=== PATIENT | male | born 1945 | race Two or more races ===

== ENCOUNTER 2017-04-05 13:34 | Inpatient (IN) | payer MEDICARE, OTHER ==
[~2017-04-05] VITALS: Ht 167.6 cm; Wt 86.2 kg
--- NOTE | 2017-04-05 14:00 | NUR ---
PT BIBA FROM [facility] FOR UNCONTROLLED BLOOD SUGAR. PT NOTED LETHARGIC. OPENS EYES TO NAME. NOTED GANGRENE ON RIGHT FOOT. SEEN BY MD FOR EVAL. SAFETY AND COMFORT MEASURES PROVIDED. WILL MONITOR.
[2017-04-05] MEDS ORDERED: ACETAMINOPHEN 650 MG/SUPP.RECT RC ONE ×2 (14:17→14:30)
[2017-04-05 14:26] LABS: HEMATOCRIT 28 % (39-51)
[2017-04-05] MEDS ORDERED: IV NS 0.9% 1,000 ML BAG IV ONE (14:30)
[2017-04-05] MEDS ORDERED: VANCOMYCIN 1 GM in IV D5W 250 ML IV ONE (14:30)
[2017-04-05] MEDS ORDERED: PIPERACILLIN /TAZOBACTAM 3.375 G in IV D5W 50 ML IV ONE (14:30)
[2017-04-05 14:31] LABS: EOSINOPHILS # (AUTO) 0.3 /CMM (0.0-0.7); EOSINOPHILS % (AUTO) 1.6 % (0.0-6.0); LYMPHOCYTES # (AUTO) 1.1 /CMM (0.8-4.8); LYMPHOCYTES % (AUTO) 6.9 % (20.0-44.0); MEAN CORPUSCULAR HEMOGLOBIN 29 PG (26.0-33.0); MEAN CORPUSCULAR HGB CONC 32 g/dl (31.0-36.0); MEAN CORPUSCULAR VOLUME 92 fL (80-96); MONOCYTES # (AUTO) 1.1 /CMM (0.1-1.30); MONOCYTES % (AUTO) 6.5 % (2.0-12.0); NEUTROPHILS # (AUTO) 13.7 /CMM (1.8-8.9); PLATELET COUNT (AUTO) 730 /CMM (150-450); RDW COEFFICIENT OF VARIATION 18.8 (11.5-15.0); RED BLOOD CELL COUNT(AUTO) 3.09 MIL/uL (4.5-6.0); WHITE BLOOD COUNT (AUTO) 16.2 K/uL (4.3-11.0)
[2017-04-05 14:46] LABS: INR 1.16 (0.87-1.13); PROTHROMBIN TIME 12.2 SECS (9.5-12.7)
[2017-04-05 14:49] LABS: ALANINE AMINOTRANSFERASE 48 U/L (12-78); ALBUMIN 2.6 g/dL (3.4-5.0); ALKALINE PHOSPHATASE 466 U/L (46-116); ASPARTATE AMINOTRANSFERASE 63 U/L (15-37); BILIRUBIN,DIRECT 0.3 mg/dL (0.0-0.2); BILIRUBIN,TOTAL 0.7 mg/dL (0.2-1.0); CALCIUM, SERUM 8.9 mg/dL (8.5-10.1); CARBON DIOXIDE 29 mmol/L (21-32); CHLORIDE 93 mmol/L (98-107); POTASSIUM 4.2 mmol/L (3.5-5.1); SODIUM SERUM 133 mmol/L (136-145); TOTAL PROTEIN, SERUM 7.6 g/dL (6.4-8.2)
[2017-04-05 14:50] LABS: TROPONIN I 0.021 ng/mL (0.00-0.056)
[2017-04-05 14:50] LABS: ABG BASE EXCESS 0.4 mmol/L; ABG OXYGEN SATURATION 96.5 % (92.0-98.5); ABG PH 7.414 (7.350-7.450); ABG PO2 101.5 mmHg (75.0-100.0); AaDO2 79.9 mmHg; COHb 1.3 % (0.5-1.5); MetHb 0.5 % (0.0-1.5); O2Hb 94.8 % (94.0-97.0); SITE, ABG Right Radial; VENT MODE, BG NASAL CANNULA
[2017-04-05 14:52] LABS: GLUCOSE 653 mg/dL (74-106); UREA NITROGEN, BLOOD 97 mg/dL (7-18)
--- NOTE | 2017-04-05 15:10 | NUR ---
IV ACCESS STARTED. BLOOD DRAWN FOR LABS. PT MEDICATED ORDERED.
--- NOTE | 2017-04-05 15:55 | NUR ---
PAGED WALTER HDEZ FOR PANEL ADMISSION
[2017-04-05] MEDS ORDERED: INSULIN REGULAR, HUMAN 100 UNIT/ML 10 ML VIAL SQ STA (15:57)
[2017-04-05] MEDS ORDERED: INSULIN REGULAR, HUMAN 100 UNIT/ML 10 ML VIAL ONE (16:12)
--- NOTE | 2017-04-05 16:23 | NUR ---
WALTER HDEZ DNP CALLED BACK, TRANSFERRED CALL TO DR URIBE
--- NOTE | 2017-04-05 16:30 | NUR ---
PAGED WALTER HDEZ AGAIN PER DR URIBE
[2017-04-05] MEDS ORDERED: CITA20TA19 PO (16:44)
[2017-04-05] MEDS ORDERED: CALC-343 PO (16:44)
[2017-04-05] MEDS ORDERED: METO2.5T2 PO (16:44)
[2017-04-05] MEDS ORDERED: LOSA25TA13 PO (16:44)
[2017-04-05] MEDS ORDERED: FURO-144 PO (16:44)
[2017-04-05] MEDS ORDERED: ASCO500T9 PO (16:44)
[2017-04-05] MEDS ORDERED: ATOR20TA PO (16:44)
[2017-04-05] MEDS ORDERED: DOCU-25 PO (16:44)
[2017-04-05] MEDS ORDERED: METO25TA6 PO (16:44)
[2017-04-05] MEDS ORDERED: CLON0.1T PO (16:44)
[2017-04-05] MEDS ORDERED: MULT-213 PO (16:44)
[2017-04-05] MEDS ORDERED: METR-105 PO (16:44)
[2017-04-05] MEDS ORDERED: INSU100V3 SQ (16:44)
[2017-04-05] MEDS ORDERED: TERA1CAP11 PO (16:44)
[2017-04-05] MEDS ORDERED: NITR0.4T6 SL (16:44)
[2017-04-05] MEDS ORDERED: SEVE800T8 PO (16:44)
[2017-04-05] MEDS ORDERED: ASPI81TA2 PO (16:44)
[2017-04-05] MEDS ORDERED: LEVO25TA9 PO (16:44)
[2017-04-05] MEDS ORDERED: EPOE1VIA6 SQ (16:44)
[2017-04-05] MEDS ORDERED: [UNRECOGNIZED DRUG - CODE] SQ (16:44)
[2017-04-05] MEDS ORDERED: LEVO500T15 PO (16:44)
[2017-04-05] MEDS ORDERED: SACC250C6 PO (16:44)
--- NOTE | 2017-04-05 17:06 | NUR ---
REPAGED WALTER HDEZ
--- NOTE | 2017-04-05 17:07 | NUR ---
REPEAT BLOOD GLUCOSE 559
[2017-04-05] MEDS ORDERED: INSULIN REGULAR, HUMAN 100 UNIT/ML 10 ML VIAL IV ONE (17:30)
--- NOTE | 2017-04-05 18:14 | NUR ---
REPORT GIVEN TO GRICELDA LAGUNAS FOR TELE ROOM [phone]
--- NOTE | 2017-04-05 18:20 | NUR ---
PT NOTED RESPONSIVE TO INSULINE- LAST [id number]
--- NOTE | 2017-04-05 18:30 | NUR ---
TELEPHONE INTERCEPTOR OPERATOR NOTES PATIENT RECEIVED FROM E.R. DEPARTMENT VIA PATRICIA, UNDER THE CARE OF DR. WALTER HDEZ, PATIENT IS ALERT AND ORIENTED X2, INDONESIAN SPEAKING ONLY, ON O2 AT 2LPM VIA NC WITH SPO2 100%, NO DISTRESS NOTED, VITAL SIGNS STABLE, PLACED PATIENT IN BED, ENSURE SAFETY AND COMFORT, NEEDS ATTENDED AND ANTICIPATED, CALL LIGHT WITHIN REACH, WILL CONTINUE TO MONITOR. Addendum: 04/05/17 at 1902 by GRICELDA CARPENTER RN ADDENDUM: WILL ENDORSE TO [employer]ON CAPTURE POWER PLANT MANAGER FOR ONESIMO.
[2017-04-05 18:56] VITALS: BP 149/79
[2017-04-05 18:58] VITALS: BP 149/79
--- NOTE | 2017-04-05 19:30 | NUR ---
RN ADMITTING NOTES RECEIVED REPORT FROM LUKE RN. Pt ARRIVED ONTO FLOOR A LITTLE AFTER 1830. FOUND Pt ASLEEP IN BED, ABLE TO BE AWAKENED, A BIT LETHARGIC. Pt IS A/OX2, KYRGYZ SPEAKING. NO S/S OF ACUTE DISTRESS OR SOB NOTED. IV ACCESS ON RFA #18G. SAFETY MEASURES IN PLACE. BED LOW, LOCKED, HOB ELEVATED, SIDE RAILS UP, CALL LIGHT AND BEDSIDE TABLE WITHIN REACH. WILL CONTINUE TO MONITOR Pt THROUGHOUT THE NIGHT FOR SAFETY.
[2017-04-05 20:00] VITALS: BP 159/81
[2017-04-05] MEDS ORDERED: Z GUARD REMEDY 2 OZ OINT TP PRN (20:00)
[2017-04-05] MEDS ORDERED: CLONIDINE HCL 0.1 MG TABLET PO PRN (20:00)
[2017-04-05] MEDS ORDERED: DEXTROSE 50%-WATER 50 ML DISP.SYRIN IV PRN (20:00)
[2017-04-05] MEDS ORDERED: ONDANSETRON HCL/PF 4 MG/2 ML VIAL IVP PRN (20:00)
[2017-04-05] MEDS ORDERED: HEPARIN SODIUM, PORCINE 5000 UNITS/1 ML VIAL SQ SCH (21:00)
[2017-04-05] MEDS: MEROPENEM 1 G in IV NS 0.9% 100 ML IV SCH (21:00)
[2017-04-05] MEDS: BLOOD SUGAR DIAGNOSTIC 1 EACH STRIP IN SCH (21:31)
[2017-04-05] MEDS: INSULIN REGULAR, HUMAN 100 UNIT/ML 3 ML VIAL SQ PRN (21:40)
[2017-04-05] MEDS ORDERED: MEROPENEM 1 G VIAL IV ONE (22:00)
--- NOTE | 2017-04-05 22:00 | NUR ---
RN NOTES ADMINISTERED 10UN OF LEVEMIR PER MD ORDER. BG 384.
--- NOTE | 2017-04-05 22:00 | NUR ---
RN NOTES BG 384. ADMINISTERED 20UN OF INSULIN PER SLIDING SCALE.
[2017-04-05] MEDS ORDERED: TERAZOSIN HCL 1 MG CAPSULE ONE (22:01)
[2017-04-05] MEDS ORDERED: ATORVASTATIN 10 MG TABLET ONE (22:02)
[2017-04-05] MEDS ORDERED: HEPARIN SODIUM, PORCINE 5000 UNITS/1 ML VIAL ONE (22:02)
[2017-04-05] MEDS ORDERED: LOSARTAN POTASSIUM 25 MG TABLET ONE (22:02)
[2017-04-05] MEDS ORDERED: INSULIN DETEMIR 100 UNIT/ML CARTRIDGE SQ ONE (22:12)
[2017-04-05] MEDS: HEPARIN SODIUM, PORCINE 5000 UNITS/1 ML VIAL SQ SCH (22:21)
[2017-04-05] MEDS: ATORVASTATIN 10 MG TABLET PO SCH (22:21)
[2017-04-05] MEDS: LOSARTAN POTASSIUM 25 MG TABLET PO SCH (22:22)
[2017-04-05] MEDS: TERAZOSIN HCL 1 MG CAPSULE PO SCH (22:22)
[2017-04-05] MEDS: INSULIN DETEMIR 100 UNIT/ML CARTRIDGE SQ SCH (22:24)
[2017-04-06] VITALS: BP 157/71
[2017-04-06] MEDS ORDERED: INSULIN REGULAR, HUMAN 100 UNIT/ML 3 ML VIAL SQ SCH
[2017-04-06] MEDS: BLOOD SUGAR DIAGNOSTIC 1 EACH STRIP IN SCH ×6 (01:44→22:29)
[2017-04-06] MEDS: INSULIN REGULAR, HUMAN 100 UNIT/ML 3 ML VIAL SQ PRN ×2 (01:51→22:36)
--- NOTE | 2017-04-06 01:55 | NUR ---
RN NOTES BG CHECK 203. ADMINISTERED 8UN OF INSULIN PER SLIDING SCALE.
[2017-04-06 04:00] VITALS: BP 147/72
[2017-04-06] MEDS ORDERED: MEROPENEM 1 G VIAL IV ONE (04:29)
[2017-04-06] MEDS: MEROPENEM 1 G in IV NS 0.9% 100 ML IV SCH (04:58)
--- NOTE | 2017-04-06 05:07 | NUR ---
RN NOTES BG 122. NO INSULIN COVERAGE NEEDED AT THIS TIME.
--- NOTE | 2017-04-06 06:45 | NUR ---
RN CLOSING NOTES NO SIGNIFICANT CHANGES IN Pt's CONDITION. NO S/S OF ACUTE DISTRESS OR SOB NOTED DURING THE NIGHT. ALL NEEDS MET AND ATTENDED TO. SAFETY MEASURES IN PLACE. TELE READING SR 78. WILL ENDORSE TO DAYSHIFT RN FOR Pt's ONESIMO.
[2017-04-06 07:00] LABS: EOSINOPHILS # (AUTO) 0.4 /CMM (0.0-0.7); EOSINOPHILS % (AUTO) 2.4 % (0.0-6.0); HEMATOCRIT 26 % (39-51); HEMOGLOBIN 8.3 g/dL (13.5-17.5); LYMPHOCYTES # (AUTO) 1.3 /CMM (0.8-4.8); MEAN CORPUSCULAR HEMOGLOBIN 29 PG (26.0-33.0); MEAN CORPUSCULAR HGB CONC 32 g/dl (31.0-36.0); MEAN CORPUSCULAR VOLUME 91 fL (80-96); MONOCYTES # (AUTO) 0.8 /CMM (0.1-1.30); MONOCYTES % (AUTO) 4.7 % (2.0-12.0); NEUTROPHILS # (AUTO) 13.9 /CMM (1.8-8.9); NEUTROPHILS % (AUTO) 84.9 % (43.0-81.0); PLATELET COUNT (AUTO) 552 /CMM (150-450); RDW COEFFICIENT OF VARIATION 19.8 (11.5-15.0); RED BLOOD CELL COUNT(AUTO) 2.85 MIL/uL (4.5-6.0); WHITE BLOOD COUNT (AUTO) 16.3 K/uL (4.3-11.0)
[2017-04-06 07:05] LABS: ALANINE AMINOTRANSFERASE 46 U/L (12-78); ALBUMIN 2.3 g/dL (3.4-5.0); ALKALINE PHOSPHATASE 364 U/L (46-116); ASPARTATE AMINOTRANSFERASE 41 U/L (15-37); BILIRUBIN,TOTAL 0.7 mg/dL (0.2-1.0); CALCIUM, SERUM 8.5 mg/dL (8.5-10.1); CARBON DIOXIDE 28 mmol/L (21-32); CHLORIDE 94 mmol/L (98-107); CREATININE 6.8 mg/dL (0.6-1.3); GLUCOSE 110 mg/dL (74-106); MAGNESIUM 2.3 mg/dL (1.8-2.4); POTASSIUM 3.9 mmol/L (3.5-5.1); SODIUM SERUM 133 mmol/L (136-145); TOTAL PROTEIN, SERUM 7.1 g/dL (6.4-8.2)
[2017-04-06 07:11] LABS: UREA NITROGEN, BLOOD 95 mg/dL (7-18)
[2017-04-06 07:15] VITALS: BP 136/68
[2017-04-06 07:18] LABS: IRON, SERUM 35 ug/dl (50-175); TOTAL IRON BINDING CAPACITY 127 ug/dl (250-450)
[2017-04-06 07:25] LABS: CHOLESTEROL 74 mg/dL (<200); HDL CHOLESTEROL 31 mg/dL (40-60); LDL 36 mg/dL (0-99); THYROID STIMULATING HORMONE 5.652 uIU/mL (0.358-3.74); TRIGLYCERIDES 39 mg/dL (30-150)
[2017-04-06] MEDS: PANTOPRAZOLE 40 MG TABLET.DR PO SCH (07:30)
--- NOTE | 2017-04-06 07:30 | NUR ---
TELE/RN OPENING NOTES NO BP ON LEFT ARM SIGN ABOVE BED. PT. IS IN BED A&OX2 TAJIK SPEAKING. BREATHING ON OXYGEN 2L/MIN UNLABORED. TELE MONITOR SINUS RHYTHM 78 BPM. NO S/S OF ACUTE DISTRESS. IV FLUIDS RUNNING TO KEEP VEIN OPEN 5ML/HR. PT. HAS LEFT SIDED WEAKNESS. BED IS IN LOW POSITION, 2 SIDE RAILS UP, AND CALL LIGHT WITHIN REACH.
[2017-04-06] MEDS ORDERED: FEE PK DOSING 1 MIN EA MC ONE (09:08)
[2017-04-06] MEDS: SEVELAMER CARBONATE 800 MG TABLET PO SCH ×3 (10:01→17:56)
[2017-04-06] MEDS: LEVOTHYROXINE SODIUM 25 MCG TABLET PO SCH (10:01)
[2017-04-06] MEDS: CITALOPRAM HYDROBROMIDE 20 MG TABLET PO SCH (10:02)
[2017-04-06] MEDS: FUROSEMIDE 40 MG TABLET PO SCH ×2 (10:02→17:56)
[2017-04-06] MEDS: ASPIRIN 81 MG TAB.CHEW PO SCH (10:02)
[2017-04-06] MEDS: METOLAZONE 2.5 MG TABLET PO SCH (10:02)
[2017-04-06] MEDS: ACETAMINOPHEN 325 MG TABLET PO PRN (10:02)
[2017-04-06] MEDS: DOCUSATE SODIUM 100 MG CAPSULE PO SCH ×2 (10:02→17:56)
[2017-04-06] MEDS: ACIDOPHILUS/BULGARICUS 1 EACH TAB.CHEW PO SCH ×3 (10:02→17:56)
[2017-04-06] MEDS: METOPROLOL TARTRATE 25 MG TABLET PO SCH ×2 (10:03→17:00)
[2017-04-06] MEDS: HEPARIN SODIUM, PORCINE 5000 UNITS/1 ML VIAL SQ SCH ×2 (10:05→22:28)
[2017-04-06 12:00] VITALS: BP 152/82
[2017-04-06] MEDS ORDERED: EPOETIN ALFA (10,000 UNIT) 10,000 UNIT/ML VIAL SQ SCH (15:00)
[2017-04-06 16:00] VITALS: BP 145/75
--- NOTE | 2017-04-06 16:00 | NUR ---
TELE/RN NOTES PT. HAD RIGHT FOOT WOUND DEBRIDEMENT, AND DRAIN PERFORMED BY ALEXUS BENNETT DPM. WOUND CULTURE WAS TAKEN.
--- NOTE | 2017-04-06 19:00 | NUR ---
RN CLOSING NOTES NO BP ON LEFT ARM SIGN ABOVE BED. PT. IS IN BED A&OX2 ICELANDIC SPEAKING, NEAR BEDSIDE. BREATHING ON OXYGEN 2L/MIN UNLABORED. TELE MONITOR WAS DISCONTINUED. NO S/S OF ACUTE DISTRESS. IV FLUIDS RUNNING TO KEEP VEIN OPEN 5ML/HR. PT. RECEIVED HEMODIALYSIS WITH 1.3 LITERS OUTPUT. PT. HAD A RIGHT FOOT WOUND DEBRIDEMENT PERFORMED AT BED SIDE, AND WOUND CULTURE TAKEN. BED IS IN LOW POSITION, 2 SIDE RAILS UP, AND CALL LIGHT WITHIN REACH. WILL ENDORSE TO SERVICE AND REPAIR SUPERVISOR NURSE PT. IS TO RECEIVE IV ANTIBIOTICS POST HEMODIALYSIS, AND COLLECT URINE SAMPLE.
--- NOTE | 2017-04-06 19:36 | NUR ---
RN OPENING NOTES RECEIVED REPORT FROM LUKE RNSHIRA. FOUND Pt ASLEEP IN BED. NO S/S OF ACUTE DISTRESS OR SOB NOTED. EQUAL CHEST RISE AND FALL. Pt IS A/OX2, MACANESE SPEAKING. IV ACCESS RFA #18G, TKO. SAFETY MEASURES IN PLACE. BED LOW, LOCKED, HOB ELEVATED, SIDE RAILS UP, CALL LIGHT AND BEDSIDE TABLE WITHIN REACH. WILL CONTINUE TO MONITOR Pt THROUGHOUT THE NIGHT.
[2017-04-06 20:00] VITALS: BP 142/69
[2017-04-06] MEDS: VANCOMYCIN 500 MG in IV D5W 100 ML IV PRN (20:38)
--- NOTE | 2017-04-06 22:00 | NUR ---
RN NOTES BG CHECK 224. ADMINISTERED 8UN OF INSULIN PER SLIDING SCALE. ALSO ADMINISTERED 10UN OF LEVEMIR PER MD ORDER.
[2017-04-06] MEDS: ATORVASTATIN 10 MG TABLET PO SCH (22:26)
[2017-04-06] MEDS: TERAZOSIN HCL 1 MG CAPSULE PO SCH (22:27)
[2017-04-06] MEDS: LOSARTAN POTASSIUM 25 MG TABLET PO SCH (22:27)
[2017-04-06] MEDS: INSULIN DETEMIR 100 UNIT/ML CARTRIDGE SQ SCH (22:36)
[2017-04-07] MEDS: BLOOD SUGAR DIAGNOSTIC 1 EACH STRIP IN SCH ×6 (01:05→21:37)
[2017-04-07] MEDS: INSULIN REGULAR, HUMAN 100 UNIT/ML 3 ML VIAL SQ PRN ×3 (01:10→21:47)
--- NOTE | 2017-04-07 01:13 | NUR ---
RN NOTES BG CHECK 195. ADMINISTERED 4UN OF INSULIN PER SLIDING SCALE. SNACKS PROVIDED AT BEDSIDE.
[2017-04-07] MEDS: MORPHINE SULFATE INJ 4 MG/ML DISP.SYRIN IV PRN (01:16)
--- NOTE | 2017-04-07 05:12 | NUR ---
RN NOTES BG CHECK 108. NO INSULIN NEEDED AT THIS TIME.
--- NOTE | 2017-04-07 06:32 | NUR ---
RN CLOSING NOTES NO SIGNIFICANT CHANGES IN Pt's CONDITION DURING SHIFT. NO S/S OF ACUTE DISTRESS OR SOB NOTED DURING THE NIGHT. ALL NEEDS MET AND ATTENDED TO. SAFETY MEASURES CARRIED OUT. WILL ENDORSE TO DAYSHIFT RN FOR Pt's ONESIMO.
[2017-04-07 06:46] LABS: EOSINOPHILS # (AUTO) 0.3 /CMM (0.0-0.7); EOSINOPHILS % (AUTO) 1.9 % (0.0-6.0); HEMATOCRIT 27 % (39-51); HEMOGLOBIN 8.7 g/dL (13.5-17.5); LYMPHOCYTES # (AUTO) 1.1 /CMM (0.8-4.8); LYMPHOCYTES % (AUTO) 6.6 % (20.0-44.0); MEAN CORPUSCULAR HEMOGLOBIN 30 PG (26.0-33.0); MEAN CORPUSCULAR HGB CONC 33 g/dl (31.0-36.0); MEAN CORPUSCULAR VOLUME 90 fL (80-96); MONOCYTES # (AUTO) 0.9 /CMM (0.1-1.30); MONOCYTES % (AUTO) 5.6 % (2.0-12.0); NEUTROPHILS # (AUTO) 13.9 /CMM (1.8-8.9); NEUTROPHILS % (AUTO) 85.9 % (43.0-81.0); PLATELET COUNT (AUTO) 561 /CMM (150-450); RDW COEFFICIENT OF VARIATION 20.2 (11.5-15.0); RED BLOOD CELL COUNT(AUTO) 2.95 MIL/uL (4.5-6.0); WHITE BLOOD COUNT (AUTO) 16.2 K/uL (4.3-11.0)
[2017-04-07] MEDS: PANTOPRAZOLE 40 MG TABLET.DR PO SCH (06:47)
[2017-04-07] MEDS: LEVOTHYROXINE SODIUM 25 MCG TABLET PO SCH (06:47)
[2017-04-07 06:55] LABS: CALCIUM, SERUM 8.2 mg/dL (8.5-10.1); CARBON DIOXIDE 30 mmol/L (21-32); CHLORIDE 97 mmol/L (98-107); CREATININE 5.4 mg/dL (0.6-1.3); GLUCOSE 104 mg/dL (74-106); MAGNESIUM 2.2 mg/dL (1.8-2.4); PHOSPHORUS 5.5 mg/dL (2.5-4.9); POTASSIUM 4.1 mmol/L (3.5-5.1); SODIUM SERUM 137 mmol/L (136-145); UREA NITROGEN, BLOOD 64 mg/dL (7-18)
--- NOTE | 2017-04-07 07:38 | NUR ---
RN NOTES RECEIVED PT IN BED, AWAKE AND RESTING. NO SOB OR SIGNS OF DISTRESS NOTED. IV ON RFA PATENT AND INTACT NO REDNESS NOTED. SAFETY MEASURES ARE IN PLACE. WILL CONTINUE TO MONITOR.
[2017-04-07 08:00] VITALS: BP 141/67
[2017-04-07] MEDS: ASPIRIN 81 MG TAB.CHEW PO SCH (08:44)
[2017-04-07] MEDS: CITALOPRAM HYDROBROMIDE 20 MG TABLET PO SCH (08:44)
[2017-04-07] MEDS: ACIDOPHILUS/BULGARICUS 1 EACH TAB.CHEW PO SCH ×3 (08:44→16:54)
[2017-04-07] MEDS: METOLAZONE 2.5 MG TABLET PO SCH (08:45)
[2017-04-07] MEDS: FUROSEMIDE 40 MG TABLET PO SCH ×2 (08:45→16:54)
[2017-04-07] MEDS: SEVELAMER CARBONATE 800 MG TABLET PO SCH ×3 (08:45→17:00)
[2017-04-07] MEDS: DOCUSATE SODIUM 100 MG CAPSULE PO SCH ×2 (08:46→16:54)
[2017-04-07] MEDS: DAKINS FULL STRENGTH (0.5%) 480 ML BOTTLE TOP SCH (08:46)
[2017-04-07] MEDS: METOPROLOL TARTRATE 25 MG TABLET PO SCH ×2 (08:47→16:54)
[2017-04-07] MEDS: HEPARIN SODIUM, PORCINE 5000 UNITS/1 ML VIAL SQ SCH ×2 (08:53→21:44)
[2017-04-07] MEDS: MEROPENEM 500 MG in IV NS 0.9% 50 ML IV SCH (08:55)
--- NOTE | 2017-04-07 11:18 | NUR ---
WOUND CARE CONSULT WOUND CARE RECEIVED WOUND CONSULT FOR RIGHT FOOT WOUND. GOVERNMENT SERVICE EXECUTIVE WILL DEFER TREATMENT PLAN AND CONSULT TO SURGICAL TEAM/DPM AT THIS TIME. TREATMENT ORDERS ARE NOTED TO BE IN PLACE. PATIENT SHARRON AT 14. ALL PRESSURE ULCER PREVENTION MEASURES NOTED TO BE IN PLACE AT THIS TIME.
[2017-04-07] MEDS: Magnesium 1GM/D5W 100ML PREMIX 100 ML IV SCH ×2 (14:52→15:51)
--- NOTE | 2017-04-07 15:02 | NUR ---
RN NOTES PATIENT REFUSED PROCEDURE Addendum: 04/07/17 at 1503 by ERNESTINE GLOVER RN Amended: Links added.
[2017-04-07 16:00] VITALS: BP 146/78
[2017-04-07] MEDS: ACETAMINOPHEN 325 MG TABLET PO PRN (17:00)
--- NOTE | 2017-04-07 19:35 | NUR ---
RN OPENING NOTES RECEIVED REPORT FROM LUKE RNCLAUDIA. FOUND Pt AWAKE IN BED. NO S/S OF ACUTE DISTRESS OR SOB NOTED. EQUAL CHEST RISE AND FALL. Pt IS A/OX2, MALAYSIAN SPEAKING. IV ACCESS RFA #18G, TKO. SAFETY MEASURES IN PLACE. BED LOW, LOCKED, HOB ELEVATED, SIDE RAILS UP, CALL LIGHT AND BEDSIDE TABLE WITHIN REACH. WILL CONTINUE TO MONITOR Pt THROUGHOUT THE NIGHT.
[2017-04-07 20:00] VITALS: BP 133/66
[2017-04-07] MEDS: TERAZOSIN HCL 1 MG CAPSULE PO SCH (21:39)
[2017-04-07] MEDS: LOSARTAN POTASSIUM 25 MG TABLET PO SCH (21:39)
[2017-04-07] MEDS: ATORVASTATIN 10 MG TABLET PO SCH (21:40)
[2017-04-07] MEDS: INSULIN DETEMIR 100 UNIT/ML CARTRIDGE SQ SCH (21:46)
--- NOTE | 2017-04-07 22:00 | NUR ---
RN NOTES BG 150. ADMINISTERED 2UN OF INSULIN PER SLIDING SCALE IN ADDITION TO SCHEDULED LEVEMIR 1OUN.
[2017-04-08] MEDS: BLOOD SUGAR DIAGNOSTIC 1 EACH STRIP IN SCH ×6 (01:24→21:14)
[2017-04-08] MEDS: INSULIN REGULAR, HUMAN 100 UNIT/ML 3 ML VIAL SQ PRN ×2 (01:28→21:21)
--- NOTE | 2017-04-08 01:34 | NUR ---
RN NOTES BG 139. ADMINISTERED 2UN OF INSULIN PER SLIDING SCALE. PROVIDED OJ AT BEDSIDE.
--- NOTE | 2017-04-08 05:29 | NUR ---
RN NOTES BG CHECK 107. NO INSULIN COVERAGE NEEDED AT THIS TIME. OJ AT BEDSIDE.
--- NOTE | 2017-04-08 06:56 | NUR ---
RN CLOSING NOTES NO SIGNIFICANT CHANGES IN Pt's CONDITION. NO S/S OF ACUTE DISTRESS OR SOB NOTED DURING THE NIGHT. ALL NEEDS MET AND ATTENDED TO. SAFETY MEASURES IN PLACE. WILL ENDORSE TO DAYSHIFT RN FOR Pt's ONESIMO.
[2017-04-08 06:58] LABS: BASOPHILS % (AUTO) 0.2 % (0.0-2.0); EOSINOPHILS # (AUTO) 0.4 /CMM (0.0-0.7); EOSINOPHILS % (AUTO) 2.8 % (0.0-6.0); HEMATOCRIT 25 % (39-51); HEMOGLOBIN 8.1 g/dL (13.5-17.5); LYMPHOCYTES # (AUTO) 1.4 /CMM (0.8-4.8); LYMPHOCYTES % (AUTO) 8.9 % (20.0-44.0); MEAN CORPUSCULAR HEMOGLOBIN 29 PG (26.0-33.0); MEAN CORPUSCULAR HGB CONC 32 g/dl (31.0-36.0); MEAN CORPUSCULAR VOLUME 90 fL (80-96); MONOCYTES # (AUTO) 1.1 /CMM (0.1-1.30); MONOCYTES % (AUTO) 7.1 % (2.0-12.0); NEUTROPHILS # (AUTO) 12.8 /CMM (1.8-8.9); PLATELET COUNT (AUTO) 549 /CMM (150-450); RDW COEFFICIENT OF VARIATION 20.2 (11.5-15.0); WHITE BLOOD COUNT (AUTO) 15.8 K/uL (4.3-11.0)
[2017-04-08 07:02] LABS: CALCIUM, SERUM 7.9 mg/dL (8.5-10.1); CARBON DIOXIDE 28 mmol/L (21-32); CHLORIDE 93 mmol/L (98-107); CREATININE 6.5 mg/dL (0.6-1.3); GLUCOSE 103 mg/dL (74-106); MAGNESIUM 2.7 mg/dL (1.8-2.4); PHOSPHORUS 6.8 mg/dL (2.5-4.9); POTASSIUM 4.6 mmol/L (3.5-5.1); SODIUM SERUM 132 mmol/L (136-145); UREA NITROGEN, BLOOD 75 mg/dL (7-18)
--- NOTE | 2017-04-08 07:43 | NUR ---
MS/RN Opening note Patient received from seed yeast operator. No needs at this time, call light within reach. Bed in low setting, brakes locked, side rails X3 in upright position. Will continue to monitor and ensure safety.
[2017-04-08 08:00] VITALS: BP 136/62
[2017-04-08] MEDS: CITALOPRAM HYDROBROMIDE 20 MG TABLET PO SCH (09:00)
--- NOTE | 2017-04-08 09:00 | NUR ---
MS/RN Morning medications Morning medications administered as ordered.
[2017-04-08] MEDS: METOPROLOL TARTRATE 25 MG TABLET PO SCH ×2 (09:15→17:00)
[2017-04-08] MEDS: ASPIRIN 81 MG TAB.CHEW PO SCH (09:15)
[2017-04-08] MEDS: FUROSEMIDE 40 MG TABLET PO SCH ×2 (09:15→17:00)
[2017-04-08] MEDS: ACIDOPHILUS/BULGARICUS 1 EACH TAB.CHEW PO SCH ×3 (09:15→17:08)
[2017-04-08] MEDS: METOLAZONE 2.5 MG TABLET PO SCH (09:15)
[2017-04-08] MEDS: DOCUSATE SODIUM 100 MG CAPSULE PO SCH ×2 (09:15→17:08)
[2017-04-08] MEDS: SEVELAMER CARBONATE 800 MG TABLET PO SCH ×3 (09:19→17:08)
[2017-04-08] MEDS: LEVOTHYROXINE SODIUM 25 MCG TABLET PO SCH (09:19)
[2017-04-08] MEDS: PANTOPRAZOLE 40 MG TABLET.DR PO SCH (09:19)
[2017-04-08] MEDS: HEPARIN SODIUM, PORCINE 5000 UNITS/1 ML VIAL SQ SCH ×2 (09:20→21:18)
--- NOTE | 2017-04-08 09:45 | NUR ---
MS/RN S/B Dr Willis Seen by Dr Willis - dressings changed.
[2017-04-08] MEDS: MEROPENEM 500 MG in IV NS 0.9% 50 ML IV SCH (09:57)
[2017-04-08] MEDS: DAKINS FULL STRENGTH (0.5%) 480 ML BOTTLE TOP SCH (09:58)
[2017-04-08] MEDS ORDERED: MERO1VIA IV (10:02)
[2017-04-08] MEDS ORDERED: VANC1PLA10 IV (10:02)
--- NOTE | 2017-04-08 10:14 | NUR ---
MS/RN S/B Dr Shen Seen by Dr Shen - patient to be discahrged to SNF today after HDX.
--- NOTE | 2017-04-08 11:00 | NUR ---
MS/RN HDX HDX underway at bedside.
--- NOTE | 2017-04-08 13:02 | NUR ---
MS/RN Blood sugar Blood sugar at noon 115, no insulin coverage needed.
[2017-04-08 16:00] VITALS: BP 106/67
--- NOTE | 2017-04-08 16:03 | NUR ---
MS/RN HDX HDX completed, 1.8l removed.
--- NOTE | 2017-04-08 16:04 | NUR ---
MS/line mover pictures Discharge pictures taken and placed in chart. Per MD order, dressing to right foot left intact.
--- NOTE | 2017-04-08 16:13 | NUR ---
MS/fiberglass container winding operator on hold Discharge on hold until tomorrow, per Dr Shen.
--- NOTE | 2017-04-08 18:20 | NUR ---
MS/RN End note All medications administered as ordered, at bedside and updated on plan of care. Will be discharged to [facility] tomorrow morning. All needs attended, will endorse to cisco consultant.
--- NOTE | 2017-04-08 19:15 | NUR ---
MS/RN OPENING NOTES PT ASLEEP, EASILY AROUSABLE TO NAME. CURRENTLY ON ROOM AIR, NO SOB OR S/S OF DISTRESS NOTED. BREATHING EVEN AND UNLABORED. DENIES PAIN. IV TO RIGHT FA PATENT AND INTACT. AV SHUNT TO LEFT ARM NOTED. DRESSING TO RIGHT FOOT INTACT. BED IN LOW/LOCKED POSITION WITH CALL LIGHT IN REACH. SIDE RAILS UPX2. WILL CONTINUE TO MONITOR
[2017-04-08 20:00] VITALS: BP 127/59
[2017-04-08] MEDS: VANCOMYCIN 500 MG in IV D5W 100 ML IV PRN (20:25)
--- NOTE | 2017-04-08 20:31 | NUR ---
MS/RN NOTES REPORT GIVEN TO CARLINE BAPTISTE FOR CONTINUITY OF CARE. PT REMAINS IN STABLE CONDITION.
--- NOTE | 2017-04-08 21:15 | NUR ---
BLOCKING MACHINE OPERATOR/NOTES BLOOD SUGAR 250 , 10 UNITS OF LEVEMIR GIVEN AND 8 UNITS OF REGULAR INSULIN, SNACKS ALSO SERVED. NO SIGNS OF HYPER GLYCEMIA NOTED. WILL CONTINUE TO MONITOR. PLACE CALL LIGHT AT REACH.
[2017-04-08] MEDS: ATORVASTATIN 10 MG TABLET PO SCH (22:56)
[2017-04-08] MEDS: LOSARTAN POTASSIUM 25 MG TABLET PO SCH (22:57)
[2017-04-08] MEDS: TERAZOSIN HCL 1 MG CAPSULE PO SCH (22:58)
[2017-04-08] MEDS: INSULIN DETEMIR 100 UNIT/ML CARTRIDGE SQ SCH (22:59)
[2017-04-09] MEDS: BLOOD SUGAR DIAGNOSTIC 1 EACH STRIP IN SCH ×4 (02:07→13:35)
[2017-04-09] MEDS: INSULIN REGULAR, HUMAN 100 UNIT/ML 3 ML VIAL SQ PRN ×4 (02:12→13:38)
--- NOTE | 2017-04-09 02:12 | NUR ---
SQL TECH/NOTES CHECKED BLOOD SUGAR ORDERED, 261 , 12 UNITS OF INSULIN GIVEN. NO SIGNS OF HYPER GLYCEMIA NOTED. WILL CONTINUE TO MONITOR. KEPT HIM WARM AND COMFORTABLE AT ALL TIMES.
--- NOTE | 2017-04-09 05:01 | NUR ---
FIELD OPERATIONS MANAGER/NOTES PT SLEEPING COMFORTABLY IN BE WITHOUT ANY ACUTE DISTRESS NOTED. WILL CONTINUE TO MONITOR.
[2017-04-09] MEDS: PANTOPRAZOLE 40 MG TABLET.DR PO SCH (06:24)
[2017-04-09] MEDS: LEVOTHYROXINE SODIUM 25 MCG TABLET PO SCH (06:24)
[2017-04-09 06:37] LABS: EOSINOPHILS # (AUTO) 0.3 /CMM (0.0-0.7); EOSINOPHILS % (AUTO) 2.4 % (0.0-6.0); HEMATOCRIT 27 % (39-51); HEMOGLOBIN 8.5 g/dL (13.5-17.5); LYMPHOCYTES # (AUTO) 1.2 /CMM (0.8-4.8); LYMPHOCYTES % (AUTO) 8.3 % (20.0-44.0); MEAN CORPUSCULAR HEMOGLOBIN 29 PG (26.0-33.0); MEAN CORPUSCULAR HGB CONC 32 g/dl (31.0-36.0); MEAN CORPUSCULAR VOLUME 91 fL (80-96); MONOCYTES # (AUTO) 1.3 /CMM (0.1-1.30); MONOCYTES % (AUTO) 9.5 % (2.0-12.0); NEUTROPHILS # (AUTO) 11.2 /CMM (1.8-8.9); NEUTROPHILS % (AUTO) 79.8 % (43.0-81.0); PLATELET COUNT (AUTO) 535 /CMM (150-450); RDW COEFFICIENT OF VARIATION 20.7 (11.5-15.0); RED BLOOD CELL COUNT(AUTO) 2.93 MIL/uL (4.5-6.0)
[2017-04-09] MEDS: MORPHINE SULFATE INJ 4 MG/ML DISP.SYRIN IV PRN (06:37)
--- NOTE | 2017-04-09 06:40 | NUR ---
MS RN NOTE PATIENT COMPLAINS OF KNEE PAIN 8, MORPHINE 4MG IVP GIVEN. WILL REASSESS EFFECTIVENESS.
[2017-04-09 06:51] LABS: CALCIUM, SERUM 7.8 mg/dL (8.5-10.1); CARBON DIOXIDE 30 mmol/L (21-32); CHLORIDE 94 mmol/L (98-107); CREATININE 5.6 mg/dL (0.6-1.3); GLUCOSE 146 mg/dL (74-106); MAGNESIUM 2.5 mg/dL (1.8-2.4); PHOSPHORUS 6.4 mg/dL (2.5-4.9); POTASSIUM 4.5 mmol/L (3.5-5.1); SODIUM SERUM 132 mmol/L (136-145); UREA NITROGEN, BLOOD 56 mg/dL (7-18)
--- NOTE | 2017-04-09 07:30 | NUR ---
MS RN NOTES RECEIVED REPORT WITH PATIENT IN STABLE CONDITION. PATIENT IS A/OX2, HAITIAN SPEAKING. NO S/S OF SOB OR DISTRESS. IV IS PATENT AND INTACT, CALL LIGHT IS WITHIN REACH. SAFETY MEASURES IMPLEMENTED. WILL CONTINUE TO MONITOR THROUGHOUT SHIFT.
--- NOTE | 2017-04-09 07:34 | NUR ---
ELECTRONIC ASSEMBLER CLOSING NOTES PT RESTING AFTER PAIN MEDS GIVEN. STABLE MERY THE NIGHT. ENDORSE TO AM NURSE.
[2017-04-09 08:00] VITALS: BP 145/73
[2017-04-09] MEDS: SEVELAMER CARBONATE 800 MG TABLET PO SCH ×2 (09:58→13:36)
[2017-04-09] MEDS: ASPIRIN 81 MG TAB.CHEW PO SCH (09:58)
[2017-04-09] MEDS: FUROSEMIDE 40 MG TABLET PO SCH (09:58)
[2017-04-09] MEDS: ACIDOPHILUS/BULGARICUS 1 EACH TAB.CHEW PO SCH ×2 (09:58→13:36)
[2017-04-09 09:59] VITALS: BP 145/73
[2017-04-09] MEDS: METOPROLOL TARTRATE 25 MG TABLET PO SCH (09:59)
[2017-04-09] MEDS: METOLAZONE 2.5 MG TABLET PO SCH (09:59)
[2017-04-09] MEDS: CITALOPRAM HYDROBROMIDE 20 MG TABLET PO SCH (09:59)
[2017-04-09] MEDS: DOCUSATE SODIUM 100 MG CAPSULE PO SCH (09:59)
[2017-04-09] MEDS: HEPARIN SODIUM, PORCINE 5000 UNITS/1 ML VIAL SQ SCH (10:00)
[2017-04-09] MEDS: MEROPENEM 500 MG in IV NS 0.9% 50 ML IV SCH (10:01)
[2017-04-09] MEDS: DAKINS FULL STRENGTH (0.5%) 480 ML BOTTLE TOP SCH (10:06)
--- NOTE | 2017-04-09 15:51 | NUR ---
MS RN NOTES PATIENT DISCHARGED TO [facility]. REPORT WAS GIVEN TO JANNETH GARCIA. PATIENT WAS ESCORTED BY EMT AND IN STABLE CONDITION. NO S/S OF SOB OR DISTRESS. DISCHARGE INSTRUCTIONS PROVIDED TO PATIENT. AWARE OF ALL ABNORMAL LABS. MEDICATION RECONCILIATION DONE. IV LEFT IN RIGHT FOREARM DUE TO PATIENT GOING TO RECEIVE IV ANTIBIOTICS AT FACILITY. JANNETH GARCIA AWARE THAT IV HAS BEEN LEFT IN PLACE. ID BAND REMOVED. ALL PATIENT NEEDS MET.
== END 2017-04-09 15:50 | DRG 853 ==
LOC: ER 13:36 → TELE 17:53 → MED 04-06 18:00
PROVIDERS: ADMIT Nurse Practitioner Acute Care; ATTEND Nurse Practitioner Acute Care
PROC: 0QBN0ZZ Excision of Right Metatarsal, Open Approach (ICD-10-PCS; principal; 2017-04-06)
PROC: 0QBL0ZZ Excision of Right Tarsal, Open Approach (ICD-10-PCS; 2017-04-06)
DX: A41.9 Sepsis, unspecified organism (principal); N18.6 End stage renal disease; K85.90 Acute pancreatitis without necrosis or infection, unspecified; G93.49 Other encephalopathy; I13.2 Hypertensive heart and chronic kidney disease with heart failure and with stage 5 chronic kidney disease, or end stage renal disease; I50.32 Chronic diastolic (congestive) heart failure; E11.52 Type 2 diabetes mellitus with diabetic peripheral angiopathy with gangrene; L03.115 Cellulitis of right lower limb; M86.9 Osteomyelitis, unspecified; E11.65 Type 2 diabetes mellitus with hyperglycemia; E11.22 Type 2 diabetes mellitus with diabetic chronic kidney disease; D64.9 Anemia, unspecified; E11.69 Type 2 diabetes mellitus with other specified complication; F32.9 Major depressive disorder, single episode, unspecified; Z79.4 Long term (current) use of insulin; E78.5 Hyperlipidemia, unspecified; Z79.82 Long term (current) use of aspirin; M85.80 Other specified disorders of bone density and structure, unspecified site; Z99.2 Dependence on renal dialysis; Z89.411 Acquired absence of right great toe
CPT/HCPCS: 36415; 36600; 71010-TC; 72128-TC; 73620-TC; 80048-TC; 80053-TC; 80061-TC; 80076-TC; 80202-TC; 82962-TC; 83540-TC; 83605-TC; 83690-TC; 83735-TC; 84100-TC; 84443-TC; 84484-TC; 85025-TC; 85730-TC; 86850-TC; 87040-TC; 87070-TC; 87081-TC; 87186-TC; 90935-TC; 93307-TC; A4216; A4606; A6402; A6403; J0885; J1644; J1815; J2185; J2270; J2543; J3370; J7030; J7050; J7060; Z7610